=== PATIENT | female | born 1985 | race Caucasian/White ===

== ENCOUNTER 2020-02-14 21:53 | Emergency (ER) | payer MEDICARE, MEDICAID ==
[~2020-02-14] VITALS: Ht 157.5 cm; Wt 90.9 kg
[2020-02-14] MEDS ORDERED: LIDOcaine 1% W/epiNEPHrine 1:100,000 20ml vial SQ ONE (22:25)
--- NOTE | 2020-02-14 22:33 | NUR ---
relieving RN for break, pt is resting quietly on gurney
[2020-02-14] MEDS ORDERED: HYDROcodone/acetaminophen 10/325mg tab PO ONE (23:45)
[2020-02-14 23:53] VITALS: BP 129/79
== END 2020-02-14 23:55 | disposition home or self-care (01) ==
LOC: ER 21:57 → EDBD 21:57 → EDSEX 21:57 → ER 23:55
DX: S01.01XA Laceration without foreign body of scalp, initial encounter (principal); J45.909 Unspecified asthma, uncomplicated; X58.XXXA Exposure to other specified factors, initial encounter; Y93.89 Activity, other specified; Y92.89 Other specified places as the place of occurrence of the external cause; Y99.8 Other external cause status
CPT/HCPCS: 12002; 99284

== ENCOUNTER 2020-02-21 10:20 | Emergency (ER) | payer MEDICARE, MEDICAID ==
[~2020-02-21] VITALS: Ht 157.5 cm; Wt 90.9 kg
[2020-02-21 10:55] VITALS: BP 133/81
== END 2020-02-21 11:11 | disposition home or self-care (01) ==
LOC: ER 10:22
DX: S01.91XD Laceration without foreign body of unspecified part of head, subsequent encounter (principal); J45.909 Unspecified asthma, uncomplicated; Z48.02 Encounter for removal of sutures; W22.8XXD Striking against or struck by other objects, subsequent encounter
CPT/HCPCS: 99281